=== PATIENT | male | born 1955 | race Caucasian/White ===

== ENCOUNTER 2017-03-31 08:52 | Emergency (ER) | payer OTHER ==
[~2017-03-31] VITALS: Ht 193 cm; Wt 105.0 kg
[~2017-03-31 08:52] MED LIST: ANTIVERT25 MG PO; ATORVASTATI80 MG/TAB PO; CHILD ASA81 MG OR; DIOVAN HCT160 MG/25 PO; DOXYCYCL HYC100 M3 OR; HYDROXYZ HCL25 MG OR; LORTAB 5/3255 MG PO; PRILOSEC20 MG PO; ZOCOR10 MG OR; ZOFRAN ODT8 MG PO
[2017-03-31] MEDS ORDERED: SIMVASTATIN20 MG PO (09:16)
[2017-03-31] MEDS ORDERED: ASPIRIN 81 LOW81 MG PO (09:18)
[2017-03-31 09:30] LABS: HEMATOCRIT 44.1 % (39.0-50.0); IMMATURE GRANULOCYTES 1.4 % (0.0-1.0); MEAN CORPUSCULAR HGB 35.7 pG CALC (26.0-32.0); NEUT# 4.01 thou/uL (1.82-7.42); RED BLOOD COUNT 4.2 mill/uL (4.70-6.10); RED CELL DISTRI WIDTH 13.5 % (11.5-15.5)
[2017-03-31 09:44] LABS: ALBUMIN 4.8 g/dL (3.2-5.0); ALKALINE PHOSPHATASE 99 u/l (38-126); ANION GAP 22 (6-22 (CALC)); BILIRUBIN, TOTAL 0.8 mg/dL (0.0-1.4); BUN 29 mg/dL (9-20); BUN/CREATININE RATIO 25 (12-20 (CALC)); CALCIUM 10.2 mg/dL (8.4-10.2); CARBON DIOXIDE 23 mmol/l (22-30); CHLORIDE 101 mmol/l (95-108); CREATININE 1.2 mg/dL (0.7-1.3); GFR > 60 ML/MIN (>=60 (CALC)); GFR FOR AFR.AMER. > 60 ML/MIN (>=60 (CALC)); GLUCOSE 107 mg/dL (75-110); LIPASE 138 u/l (23-300); POTASSIUM 3.9 mmol/l (3.5-5.1); SGOT/AST 24 u/l (17-59); SGPT/ALT 46 u/l (21-72); SODIUM 141 mmol/l (137-146); TOTAL PROTEIN 8.3 g/dL (6.3-8.2)
[2017-03-31 10:48] LABS: URINE BILIRUBIN - DIPSTICK NEGATIVE (NEGATIVE); URINE BLOOD DIPSTICK SMALL (NEGATIVE); URINE COLOR YELLOW; URINE GLUCOSE - DIPSTICK NEGATIVE (NEGATIVE); URINE KETONE NEGATIVE (NEGATIVE); URINE LEUK ESTERASE NEGATIVE (NEGATIVE); URINE NITRITE - DIPSTICK NEGATIVE (Negative); URINE PH 5.5 (4.5-8.0); URINE PROTEIN - DIPSTICK NEGATIVE (NEG-TRACE); URINE UROBILINOGEN - DIPSTICK 0.2 E.U./dL (0.2)
[2017-03-31 10:59] LABS: URINE CLARITY CLEAR
[2017-03-31 11:10] LABS: URINE RBC 0-2 RBC/hpf (0-5)
[2017-03-31] MEDS ORDERED: ULTRAM50 M1 PO (16:02)
[2017-03-31 16:20] VITALS: BP 126/78
== END 2017-03-31 16:20 | disposition home or self-care (01) | DRG 694 ==
LOC: ED 08:52
PROVIDERS: Emergency Medicine
DX: N20.0 Calculus of kidney (principal); R10.32 Left lower quadrant pain

== ENCOUNTER 2018-03-29 00:51 | Emergency (ER) | payer OTHER ==
[~2018-03-29] VITALS: Ht 193 cm; Wt 96.3 kg
[~2018-03-29 00:51] MED LIST changes: +ASPIRIN 81 LOW81 MG PO; +SIMVASTATIN20 MG PO; +ULTRAM50 M1 PO
[2018-03-29] MEDS ORDERED: NAPROSYN500 MG PO (02:02)
[2018-03-29 02:10] VITALS: BP 112/77
== END 2018-03-29 02:16 | disposition home or self-care (01) | DRG 605 ==
LOC: ED 00:51
PROC: 0HQGXZZ Repair Left Hand Skin, External Approach (ICD-10-PCS; principal; 2018-03-29)
DX: S61.412A Laceration without foreign body of left hand, initial encounter (principal); S63.92XA Sprain of unspecified part of left wrist and hand, initial encounter; I10 Essential (primary) hypertension; E78.00 Pure hypercholesterolemia, unspecified; K21.9 Gastro-esophageal reflux disease without esophagitis; W17.2XXA Fall into hole, initial encounter; Y92.89 Other specified places as the place of occurrence of the external cause; Y99.0 Civilian activity done for income or pay

== ENCOUNTER → 2018-06-17 | Outpatient (REF) | payer OTHER ==
[~2018-06-17] MED LIST changes: +NAPROSYN500 MG PO
[2018-06-17 12:34] LABS: TSH, 3RD GENERATION 6.34 uIU/mL (0.47 - 4.68)
== END | disposition home or self-care (01) | DRG 645 ==
LOC: LAB 11:24
PROVIDERS: ATTEND Nurse Practitioner
DX: R94.6 Abnormal results of thyroid function studies (principal)

== ENCOUNTER 2022-04-18 19:48 | Emergency (ER) | payer MEDICARE ==
[~2022-04-18] VITALS: Ht 193 cm; Wt 79.6 kg
[2022-04-18] VITALS (10 sets, daily range): BP systolic 99–135; BP diastolic 63–90
[2022-04-18 20:22] LABS: BASO% 0.1 % (0-3); EOS% 0.8 % (0-8); LYMPH% 11.3 % (15-41); MEAN CELL VOLUME 109.1 fL CALC (80.0-100.0); MEAN CORPUSCULAR HGB 38.2 pG CALC (26.0-32.0); MONO% 9.2 % (2-13); NEUT# 13.46 thou/uL (1.82-7.42); NEUT% 63.9 % (42-76); RED BLOOD COUNT 3.09 mill/uL (4.70-6.10); RED CELL DISTRI WIDTH 15.4 % (11.5-15.5)
[2022-04-18 20:34] LABS: BILIRUBIN, TOTAL 1.2 mg/dL (0.0-1.4); INTERNATIONAL NORMALIZED RATIO 1.1 RATIO (0.7-1.3); PROTHROMBIN TIME 10.8 SECONDS (9.0-12.5); TOTAL PROTEIN 7.5 g/dL (6.3-8.2)
[2022-04-18 20:35] LABS: CREATININE 2.3 mg/dL (0.7-1.3)
[2022-04-18 20:42] LABS: HEMATOCRIT 33.7 % (39.0-50.0); HEMOGLOBIN 11.8 g/dl (14.0-18.0); IMMATURE GRANULOCYTES 14.7 % (0.0-5.0)
[2022-04-19 00:09] LABS: URINE BILIRUBIN - DIPSTICK NEGATIVE (NEGATIVE); URINE BLOOD DIPSTICK NEGATIVE (NEGATIVE); URINE COLOR YELLOW; URINE GLUCOSE - DIPSTICK NEGATIVE (NEGATIVE); URINE KETONE NEGATIVE (NEGATIVE); URINE LEUK ESTERASE NEGATIVE (NEGATIVE); URINE NITRITE - DIPSTICK NEGATIVE (Negative); URINE PH 5.5 (4.5-8.0); URINE PROTEIN - DIPSTICK NEGATIVE (NEG-TRACE); URINE UROBILINOGEN - DIPSTICK 0.2 E.U./dL (0.2)
[2022-04-19 03:07] VITALS: BP 135/90
== END 2022-04-19 03:08 | disposition short-term general hospital (02) ==
LOC: ED 19:48
PROVIDERS: Emergency Medicine
DX: M84.650A Pathological fracture in other disease, pelvis, initial encounter for fracture (principal); M89.9 Disorder of bone, unspecified; N17.9 Acute kidney failure, unspecified; E86.0 Dehydration; R19.00 Intra-abdominal and pelvic swelling, mass and lump, unspecified site; E87.20 Acidosis, unspecified; R19.5 Other fecal abnormalities; R79.89 Other specified abnormal findings of blood chemistry; D72.829 Elevated white blood cell count, unspecified; I10 Essential (primary) hypertension; E78.00 Pure hypercholesterolemia, unspecified; K21.9 Gastro-esophageal reflux disease without esophagitis; Z95.828 Presence of other vascular implants and grafts
CPT/HCPCS: J1956; S0164

== ENCOUNTER 2022-05-28 09:16 | Emergency (ER) | payer MEDICARE ==
[~2022-05-28] VITALS: Ht 188 cm; Wt 78.9 kg
[2022-05-28] VITALS (36 sets, daily range): BP systolic 86–160; BP diastolic 60–103
[2022-05-28 11:24] LABS: URINE BILIRUBIN - DIPSTICK NEGATIVE (NEGATIVE); URINE BLOOD DIPSTICK SMALL (NEGATIVE); URINE COLOR YELLOW; URINE GLUCOSE - DIPSTICK NEGATIVE (NEGATIVE); URINE KETONE TRACE mg/dL (NEGATIVE); URINE PH 5.5 (4.5-8.0); URINE PROTEIN - DIPSTICK TRACE mg/dL (NEG-TRACE); URINE SPECIFIC GRAVITY >=1.030; URINE UROBILINOGEN - DIPSTICK 0.2 E.U./dL (0.2)
[2022-05-28 11:27] LABS: ALBUMIN 3.2 g/dL (3.2-5.0); ALKALINE PHOSPHATASE 322 u/l (38-126); ANION GAP 8 (6-22 (CALC)); BILIRUBIN, TOTAL 0.9 mg/dL (0.2-1.3); CARBON DIOXIDE 27 mmol/l (22-30); CHLORIDE 96 mmol/l (95-108); LIPASE 116 u/l (23-300); MAGNESIUM 2.1 mg/dL (1.6-2.3); POTASSIUM 4.1 mmol/l (3.5-5.1); SGOT/AST 44 u/l (19-48); SODIUM 128 mmol/l (137-146); TOTAL PROTEIN 6.3 g/dL (6.3-8.2)
[2022-05-28 11:29] LABS: BUN 19 mg/dL (8-23); BUN/CREATININE RATIO 19 (12-20 (CALC)); GFR FOR AFR.AMER. > 60 ML/MIN (>=60 (CALC)); GFR OTHER RACES > 60 ML/MIN (>=60 (CALC)); URINE LEUK ESTERASE SMALL (NEGATIVE); URINE NITRITE - DIPSTICK POSITIVE (Negative)
[2022-05-28 11:30] LABS: URINE BACTERIA FEW hpf; URINE EPITHELIAL CELLS RARE EPI/hpf (0-FEW); URINE RBC 0-2 RBC/hpf (0-5)
[2022-05-28 11:35] LABS: INTERNATIONAL NORMALIZED RATIO 1.4 RATIO (0.7-1.3); PROTHROMBIN TIME 13.9 SECONDS (9.0-12.5)
[2022-05-28 11:56] LABS: BASO% 0.2 % (0-3); EOS% 1.7 % (0-8); LYMPH% 14.7 % (15-41); MEAN CELL VOLUME 105.1 fL CALC (80.0-100.0); MEAN CORPUSCULAR HGB 33.8 pG CALC (26.0-32.0); MEAN CORPUSCULAR HGB CONC 32.2 g/dL CAL (32.0-36.0); MONO% 12.4 % (2-13); NEUT# 6.53 thou/uL (1.82-7.42); NEUT% 50.4 % (42-76); RED BLOOD COUNT 1.95 mill/uL (4.70-6.10); RED CELL DISTRI WIDTH 22.8 % (11.5-15.5)
[2022-05-28 11:58] LABS: HEMATOCRIT 20.5 % (39.0-50.0)
[2022-05-28 11:59] LABS: HEMOGLOBIN 6.6 g/dl (14.0-18.0); IMMATURE GRANULOCYTES 20.6 % (0.0-5.0)
== END 2022-05-28 16:45 | disposition short-term general hospital (02) ==
LOC: ED 09:16
PROVIDERS: Internal Medicine
PROC: 30233N1 Transfusion of Nonautologous Red Blood Cells into Peripheral Vein, Percutaneous Approach (ICD-10-PCS; principal; 2022-05-28)
DX: K92.2 Gastrointestinal hemorrhage, unspecified (principal); D64.9 Anemia, unspecified; C34.90 Malignant neoplasm of unspecified part of unspecified bronchus or lung; R41.82 Altered mental status, unspecified; D69.6 Thrombocytopenia, unspecified; E87.1 Hypo-osmolality and hyponatremia; E87.20 Acidosis, unspecified; R74.8 Abnormal levels of other serum enzymes; I10 Essential (primary) hypertension; E78.00 Pure hypercholesterolemia, unspecified; K21.9 Gastro-esophageal reflux disease without esophagitis
CPT/HCPCS: P9016; Q9967; S0164

== ENCOUNTER 2022-06-03 22:28 | Inpatient (IN) | payer MEDICARE ==
[~2022-06-03] VITALS: Ht 188 cm; Wt 80.1 kg
--- NOTE | 2022-06-03 22:28 | NUR ---
PT ARRIVED VIA EMS TO ROOM 10 FOR TRIAGE. PER FAMILY, PT IS FEELING WEAK AND HAD BEEN RECENTLY DIAGNOSED WITH STAGE IV CANCER.
[2022-06-03 22:45] VITALS: BP 83/54
[2022-06-03 23:01] VITALS: BP 93/51
[2022-06-03 23:15] VITALS: BP 72/42
[2022-06-03 23:17] LABS: BASO% 0.5 % (0-3); EOS% 2.5 % (0-8); HEMATOCRIT 20.3 % (39.0-50.0); LYMPH% 19.7 % (15-41); MEAN CELL VOLUME 101.5 fL CALC (80.0-100.0); MEAN CORPUSCULAR HGB CONC 31.5 g/dL CAL (32.0-36.0); MONO% 12.8 % (2-13); NEUT# 4.43 thou/uL (1.82-7.42); NEUT% 56.4 % (42-76); RED CELL DISTRI WIDTH 24.4 % (11.5-15.5)
[2022-06-03 23:20] LABS: ALBUMIN 2.6 g/dL (3.2-5.0); ALKALINE PHOSPHATASE 264 u/l (38-126); ANION GAP 6 (6-22 (CALC)); BILIRUBIN, TOTAL 0.7 mg/dL (0.2-1.3); BUN 21 mg/dL (8-23); BUN/CREATININE RATIO 24 (12-20 (CALC)); CARBON DIOXIDE 28 mmol/l (22-30); CHLORIDE 97 mmol/l (95-108); CREATININE 0.9 mg/dL (0.7-1.3); GFR FOR AFR.AMER. > 60 ML/MIN (>=60 (CALC)); GFR OTHER RACES > 60 ML/MIN (>=60 (CALC)); POTASSIUM 4.5 mmol/l (3.5-5.1); SGOT/AST 47 u/l (19-48); SODIUM 126 mmol/l (137-146); TOTAL PROTEIN 5.5 g/dL (6.3-8.2)
[2022-06-03 23:23] LABS: IMMATURE GRANULOCYTES 8.1 % (0.0-5.0)
[2022-06-03 23:24] LABS: HEMOGLOBIN 6.4 g/dl (14.0-18.0)
[2022-06-03 23:30] LABS: ACT PARTIAL THROMBO TIME 29.5 SECONDS (20.0-32.5); INTERNATIONAL NORMALIZED RATIO 1.4 RATIO (0.7-1.3); PROTHROMBIN TIME 13.9 SECONDS (9.0-12.5)
--- NOTE | 2022-06-03 23:30 | NUR ---
Reassessment of patient completed. No distress noted. FAMILY MEMBERS AT BEDSIDE WITH PT.
[2022-06-03 23:31] VITALS: BP 78/50
[2022-06-03 23:59] VITALS: BP 108/69
[2022-06-04] VITALS (20 sets, daily range): BP systolic 88–136; BP diastolic 55–85
--- NOTE | 2022-06-04 00:45 | NUR ---
PT IN IN ROOM RESTING WITH EYES CLOSED. PT WAS DESATING AT 84. 2L OF O2 VIA NASAL CANULA APPLIED. SECOND ANTIBIOTICS IS RUNNING.
[2022-06-04 00:51] LABS: URINE BILIRUBIN - DIPSTICK NEGATIVE (NEGATIVE); URINE BLOOD DIPSTICK SMALL (NEGATIVE); URINE COLOR YELLOW; URINE GLUCOSE - DIPSTICK NEGATIVE (NEGATIVE); URINE KETONE NEGATIVE (NEGATIVE); URINE LEUK ESTERASE TRACE (NEGATIVE); URINE PH 5.5 (4.5-8.0); URINE PROTEIN - DIPSTICK TRACE mg/dL (NEG-TRACE); URINE SPECIFIC GRAVITY 1.025; URINE UROBILINOGEN - DIPSTICK 0.2 E.U./dL (0.2)
[2022-06-04 00:52] LABS: URINE NITRITE - DIPSTICK NEGATIVE (Negative)
[2022-06-04] MEDS ORDERED: ATORVASTATIN CA80 MG PO (00:58)
[2022-06-04] MEDS ORDERED: BACTRIM DS1 TAB PO (00:59)
[2022-06-04] MEDS ORDERED: LORTAB 5/3255 MG PO (01:01)
[2022-06-04] MEDS ORDERED: DOCUSATE SOD100 MG PO (01:02)
[2022-06-04] MEDS ORDERED: IPRATROPIU0.5 MG/3 M IN (01:02)
[2022-06-04] MEDS ORDERED: LISINOPRIL5 MG PO (01:03)
[2022-06-04] MEDS ORDERED: METOPROL TAR25 MG PO (01:03)
[2022-06-04] MEDS ORDERED: PROTONIX40 M2 PO (01:04)
[2022-06-04] MEDS ORDERED: MIRTAZAPINE15 MG PO (01:04)
[2022-06-04] MEDS ORDERED: TAMSULOSIN HCL0.4 MG PO (01:06)
[2022-06-04] MEDS ORDERED: PEG 3350 XX (01:06)
[2022-06-04 01:09] LABS: URINE SQUAMOUS EPITHELIAL CELL FEW EPI/hpf (0-FEW)
--- NOTE | 2022-06-04 01:48 | NUR ---
PT ADMITTED TO [facility] 267. PT TRANSPORTED TO FLOOR VIA STRETCHER. BEDSIDE REPORT GIVEN TO MARTIR. VANCO IS RUNNING, AND THE REMAINDER OF FLUIDS.
--- NOTE | 2022-06-04 01:55 | NUR ---
PT ARRIVED TO [facility], VIA STRETCHER ACCOMPANIED BY LESLEY MANTILLA. RECEIVED BEDSIDE REPORT FROM ER NURSE. FAMILY MEMBER AT BEDSIDE. PT A&OX3. VS AND ASSESSMENT COMPLETED. O2 @ 3L VIA NASAL CANNULE IN PLACE. IV SITES HEALTHY AND PATENT. BED ALARM ACTIVE AND SAFETY PRECAUTIONS IN PLACE. CALL LIGHT IN REACH.
--- NOTE | 2022-06-04 02:59 | NUR ---
PT RESTING ON BED. FAMILY AT BEDSIDE. TRANSFUSION INITIATED @0239 @ 125 MLS/HR. PT EDUCATED ON TRANSFUSION REACTIONS. PT SHOWED UNDERSTANDING.
--- NOTE | 2022-06-04 04:00 | NUR ---
PT RESTING ON BED WITH EYES CLOSED. TRANSFUSION INCREASED TO 150 MLS/HR. PT TOLERATING WELL. NO SIGNS OF REACTION NOTED. BED ALARM ACTIVE AND SAFETY PRECAUTIONS IN PLACE. CALL LIGHT IN REACH.
--- NOTE | 2022-06-04 06:32 | NUR ---
PT RESTING ON BED WITH EYES CLOSED. NO DISTRESS OR PAIN NOTED. TRANFUSION OF RBC COMPLETED AND VS OBTAINED. NO SIGNS OF REACTION NOTED. BED ALARM ACTIVE AND SAFETY PRECAUTIONS IN PLACE. CALL LIGHT IN REACH.
--- NOTE | 2022-06-04 08:00 | NUR ---
RCD REPORT FROM NIGHTSHIFT, PT IS LETHARGIC, ONLY ORIENTED TO PERSON AND PLACE. PT HAS BEEN ON BEDREST. PT HAS ONE MORE PRBC UNIT LEFT.
[2022-06-04 08:50] LABS: HEMATOCRIT 25.3 % (39.0-50.0); HEMOGLOBIN 8.1 g/dl (14.0-18.0)
--- NOTE | 2022-06-04 12:00 | NUR ---
FAMILY IS AT BEDSIDE AND WANTS PT TRANSFERRED TO [facility].
--- NOTE | 2022-06-04 13:25 | NUR ---
S: JEWEL ARTEAGA is a 67 M who presents with anemia, hyponatremia, sepsis due to pneumonia. He has a history of HTN, high cholesterol, GERD, lung cancer. All medications in patient's chart were reviewed. O: VS: BP 114/71 mmHg, P 76 bpm, RR 16 bpm,T 97.7 F W 79 kg, HT 74 inch, Scr= 0.9 mg/dl,CrCl= 81.2 ml/min A: Blood culture is pending. P: Patient is on cefepime 2 g iv q8h. Vancomycin ordered for pharmacy to dose. Start Vancomycin 1 g IV Q12H. Vancomycin trough is drawn before the 4th dose on 06/05/22-1030. Vancomycin goal trough is between 15-20 mcg/ml. Pharmacy will follow and or advise on antibiotics use as needed.
--- NOTE | 2022-06-04 19:30 | NUR ---
PATIENT RESTING IN BED WITH HOB ELEVATED. ALERT, YET DROWSY. ASSESSMENT COMPLETE. OXYGEN REMAINS IN PLACE VIA NC. NO COMPLAINTS OF PAIN VOICED. PATIENT OBSERVED WITH SHALLOW BREATHING AND INTERMITTENT COUGHING. ABLE TO RECOVER AFTER. PRODUCTIVE COUGH. SOB ON EXERTION. DENIES NEEDING ANYTHING AT THIS TIME. BED REMAINS IN LOW POSITION. CALL FRENCH IN REACH.
--- NOTE | 2022-06-04 19:56 | NUR ---
INFORMED LICENSED SALES ASSISTANT PROVIDER OF PATIENTS LOW BPS AND CLARIFIED IVF ORDER. PROVIDER SAID TO HOLD 2100 LOPRESSOR AND TO HANG FLUIDS ORDERED.
--- NOTE | 2022-06-05 00:24 | NUR ---
NOTIFIED OFFICE 365 CONSULTANT MD OF PATIENT APPEARING WITH CHILLS AND TEMP OF 100.4. NEW ORDER RECEIVED. SEE EMAR.
[2022-06-05 00:30] VITALS: BP 156/95
--- NOTE | 2022-06-05 04:00 | NUR ---
PATIENT KEEPS TAKING OFF OXYGEN. WHEN OXYGEN GETS REAPPLIED. PATIENT TAKES OFF AGAIN. PATIENT ALSO KEEPS KICKING OFF HIS COVERS. APPEAR ALERT AND ABLE TO VOICE NEEDS. BED REMAINS IN LOW POSITION. BED ALARM ACTIVE FOR SAFETY REASONS.
[2022-06-05 04:55] VITALS: BP 124/80
[2022-06-05 05:36] LABS: HEMATOCRIT 24.6 % (39.0-50.0); HEMOGLOBIN 8.1 g/dl (14.0-18.0); MEAN CORPUSCULAR HGB 31.4 pG CALC (26.0-32.0); MEAN CORPUSCULAR HGB CONC 32.9 g/dL CAL (32.0-36.0); RED BLOOD COUNT 2.58 mill/uL (4.70-6.10)
[2022-06-05 05:38] LABS: ALBUMIN 2.5 g/dL (3.2-5.0); ALKALINE PHOSPHATASE 309 u/l (38-126); ANION GAP 4 (6-22 (CALC)); BILIRUBIN, TOTAL 0.9 mg/dL (0.2-1.3); BUN 19 mg/dL (8-23); BUN/CREATININE RATIO 20 (12-20 (CALC)); CARBON DIOXIDE 28 mmol/l (22-30); CHLORIDE 101 mmol/l (95-108); CREATININE 0.9 mg/dL (0.7-1.3); GFR FOR AFR.AMER. > 60 ML/MIN (>=60 (CALC)); GFR OTHER RACES > 60 ML/MIN (>=60 (CALC)); MAGNESIUM 1.7 mg/dL (1.6-2.3); SGOT/AST 48 u/l (19-48); SODIUM 129 mmol/l (137-146); TOTAL PROTEIN 5.4 g/dL (6.3-8.2)
[2022-06-05 06:24] VITALS: BP 130/79
[2022-06-05 06:25] LABS: MEAN CELL VOLUME 95.3 fL CALC (80.0-100.0)
[2022-06-05 06:26] LABS: BAND 2 % (0-8); MANUAL DIFFERENTIAL YES; NUCLEATED RED BLOOD CELL 3 /100WBC (0-1)
[2022-06-05 06:27] LABS: PLATELET COUNT 89 thou/uL (130-400)
--- NOTE | 2022-06-05 07:44 | NUR ---
PT RESTING IN SEMI FOWLERS POSITION. PT A/OX3 ASSESSMENT AND VS COMPLETED. HEART RHYTHM ON TELE RESPIRATIONS ON 2LNC . IV SITE NOTED NS INFUSING. PT DENIES ADDITIONAL NEEDS AT THE TIME PT URINARY ELKINS CATH. NOTED URINE OUT PUT 400 TO BE DOCUMENTED. ALL SAFETY PRECAUTIONS IN PLACE WITH CALL LIGHT IN REACH.
[2022-06-05 10:00] VITALS: BP 130/85
--- NOTE | 2022-06-05 12:00 | NUR ---
PT RESTING IN SEMI FOWLERS POSITION DENIES ADDITIONAL NEEDS AT THE TIME ALL SAFETY PRECAUTIONS IN PLACE.
[2022-06-05 14:05] VITALS: BP 111/68
--- NOTE | 2022-06-05 16:32 | NUR ---
VANCO TROUGH IS 13 CONTNUE VANCO 1 GRAM Q12H NEXT TROUGH WILL BE 06/07/22 @1030
[2022-06-05 19:00] VITALS: BP 159/97
--- NOTE | 2022-06-05 19:15 | NUR ---
PATIENT RESTING IN BED WITH HOB ELEVATED. OXYGEN REMAINS ON VIA NC. PATIENT DOES PERIODICALLY REMOVE OXYGEN. FREQUENT REDIRECTING. AND DAUGHTER AT BEDSIDE. ASSESSMENT DONE. SHALLOW BREATHING OBSERVED. SOB AFTER COUGHING BUT QUICKLY RECOVERS. DENIES NEEDING ANYTHING. BED REMAINS IN LOW POSITION. CALL FRENCH IN REACH. BED ALARM ACTIVE.
[2022-06-06] VITALS (7 sets, daily range): BP systolic 111–163; BP diastolic 68–99
--- NOTE | 2022-06-06 00:55 | NUR ---
PATIENT RESTING IN BED WITH EYES CLOSED. SHALLOW BREATHING REMAINS. NO COMPLAINTS OF PAIN VOICED. BED RMEAINS IN LOW POSITION. CALL LIGHT IN REACH. BED ALARM ACTIVE.
--- NOTE | 2022-06-06 04:14 | NUR ---
NEW BAG OF IV FLUIDS HUNG. PATIENT REMAINS ALERT. ABLE TO MAKE NEEDS KNOWN. PATIENT DOES TRY MOVING LEGS OFF BED TO GET OUT OF IT. PATIENT REDIRECTED ON SAFETY CONCERNS. PATIENT OBSERVED TAKING OXYGEN FREQUENTLY. RE-EDUCTAED PATIENT ON THE IMPORTANCE OF WEARING OXYGEN. BED REMAINS IN LOW POSITION. CALL FRENCH IN REACH. BED ALARM ACTIVE FOR SAFETY.
[2022-06-06 07:59] LABS: BASO% 0.5 % (0-3); EOS% 3.9 % (0-8); HEMATOCRIT 27.1 % (39.0-50.0); HEMOGLOBIN 8.7 g/dl (14.0-18.0); LYMPH% 26.2 % (15-41); MEAN CELL VOLUME 97.1 fL CALC (80.0-100.0); MEAN CORPUSCULAR HGB 31.2 pG CALC (26.0-32.0); MEAN CORPUSCULAR HGB CONC 32.1 g/dL CAL (32.0-36.0); MONO% 14.9 % (2-13); NEUT# 2.57 thou/uL (1.82-7.42); NEUT% 43.4 % (42-76); RED BLOOD COUNT 2.79 mill/uL (4.70-6.10); RED CELL DISTRI WIDTH 23.6 % (11.5-15.5)
--- NOTE | 2022-06-06 08:00 | NUR ---
GOT REPORT FROM CAMPUS RECRUITING INTERNSHIP NURSE. PATIENT IN BED HOLDING IV IN HAND NO LONGER IN PLACE. NO BLEEDING AT SITE. CLEANED AREA AND APPLED GUAZE AND TAPE TO KEEP IT CLEAN. NEW IV STARTED IN LAC. PATIENT TOLERATED WELL. ELKINS EMPTIED. FALL PRECAUTIONS IN PLACE. CALL LIGHT AND BEDSIDE TABLE WITH IN REACH. ADVISED TO CALL IF NEEDING ANYTHING. PATIENT VERBALZIED UNDERSTANDING.
[2022-06-06 08:17] LABS: ALBUMIN 2.8 g/dL (3.2-5.0); ALKALINE PHOSPHATASE 376 u/l (38-126); ANION GAP 7 (6-22 (CALC)); BUN 16 mg/dL (8-23); BUN/CREATININE RATIO 19 (12-20 (CALC)); CARBON DIOXIDE 24 mmol/l (22-30); CHLORIDE 105 mmol/l (95-108); CREATININE 0.9 mg/dL (0.7-1.3); GFR FOR AFR.AMER. > 60 ML/MIN (>=60 (CALC)); GFR OTHER RACES > 60 ML/MIN (>=60 (CALC)); POTASSIUM 4.1 mmol/l (3.5-5.1); SGOT/AST 60 u/l (19-48); SODIUM 132 mmol/l (137-146); TOTAL PROTEIN 5.9 g/dL (6.3-8.2)
[2022-06-06 08:26] LABS: IMMATURE GRANULOCYTES 11.1 % (0.0-5.0)
[2022-06-06 08:31] LABS: BILIRUBIN, TOTAL 1.3 mg/dL (0.2-1.3)
--- NOTE | 2022-06-06 12:00 | NUR ---
PATIENT IS SLEEPING WITH DAUGHTER AT BEDSIDE. PATIENT HAS NO SXS OF DISCOMFORT OR DISTRESS. CALL LIGHT NEXT TO PATIENT AND BED ALARM IS STILL ON. ADVISED DAUGHTER TO CALL IF HE NEEDS ANYTHING. SHE VERBALIZED UNDERSTANDING.
--- NOTE | 2022-06-06 16:00 | NUR ---
PATIENT IS AWAKE WITH DAUGHTER AT BEDSIDE. PATIENT HAS NO SXS OF DISCOMFORT OR DISTRESS. CALL LIGHT NEXT TO PATIENT AND BED ALARM IS STILL ON. ADVISED DAUGHTER AND PATIENT TO CALL IF HE NEEDS ANYTHING. BOTH VERBALIZED UNDERSTANDING.
--- NOTE | 2022-06-06 20:00 | NUR ---
PT RESTING IN BED, NO SIGNS OF DISTRESS NOTED, RESP EVEN AND UNLABORED. PT HAS A NON PRODUCTIVE COARSE COUGH. ENCOURAGED PT COUGH DEEP AND PROVIDE SPUTUM SAMPLE, PT UNABLE TO EXPELL SPUTUM. AT BEDSIDE, DISCUSSED POC, PT HAS A ELKINS DRAINING TO GRAVITY, +3 PITTING EDEMA TO BUE, ELEVATED ON PILLOWS. FLUIDS INFUSING AT 125, MD NOTIFIED AND ORDERS RECEIVED TO GIVE IV LASIX AND DECREASE FLUIDS. IV FLUIDS DECREASED, DISCUSSED LASIX WITH PT AND , VERBALIZED UNDERSTANDING. NO EDEMA TO BLE. PT IS ON O2 3L HUMIDIFIED. INCENTIVE SPIROMETER BROUGHT TO BEDSIDE AND PROVIDED TEACHING, PT DEMONSTRATED IT'S USE, VOLUME 250ML. ENCOURAGED PT TO USE, VERBALIZED UNDERSTANDING. PT MEDICATED PER JUN, ASSESSMENT COMPLETED, CALL LIGHT IN REACH,CONTINUE TO MONITOR.
[2022-06-07] VITALS (8 sets, daily range): BP systolic 111–156; BP diastolic 71–87
--- NOTE | 2022-06-07 | NUR ---
PT RESTING IN BED WITH EYES CLOSED, NO SIGNS OF DISTRESS NOTED, RESP EVEN AND UNLABORED. CBI DRAINING TO GRAVITY, URINE CLEAR IN ELKINS BAG. BAG #18 CONTINUES. CALL LIGHT IN REACH,CONTINUE TO MONITOR.
--- NOTE | 2022-06-07 | NUR ---
PT RESTING IN BED WITH EYES CLOSED, NO SIGNS OF DISTRESS NOTED, RESP EVEN AND UNLABORED. 02 3L NC, CALL LIGHT IN REACH, BED ALARM FOR SAFETY, CONTINUE TO MONITOR.
--- NOTE | 2022-06-07 04:00 | NUR ---
PT RESTING IN BED, NOTED EDEMA TO BUE HAS SLIGHTLY DECREASED. BUE ELEVATED ON PILLOWS. PT DENIES ANY NEEDS OR COMPLAINTS, CALL LIGHT IN REACH,CONTINUE TO MONITOR. BED ALARM FOR SAFETY.
[2022-06-07 05:50] LABS: HEMATOCRIT 22.6 % (39.0-50.0); HEMOGLOBIN 7.2 g/dl (14.0-18.0); MEAN CORPUSCULAR HGB 30.9 pG CALC (26.0-32.0); MEAN CORPUSCULAR HGB CONC 31.9 g/dL CAL (32.0-36.0); RED BLOOD COUNT 2.33 mill/uL (4.70-6.10); RED CELL DISTRI WIDTH 23.5 % (11.5-15.5)
[2022-06-07 06:21] LABS: ANION GAP 6 (6-22 (CALC)); BUN 16 mg/dL (8-23); BUN/CREATININE RATIO 19 (12-20 (CALC)); CARBON DIOXIDE 24 mmol/l (22-30); CHLORIDE 105 mmol/l (95-108); CREATININE 0.8 mg/dL (0.7-1.3); GFR FOR AFR.AMER. > 60 ML/MIN (>=60 (CALC)); GFR OTHER RACES > 60 ML/MIN (>=60 (CALC)); POTASSIUM 3.6 mmol/l (3.5-5.1); SODIUM 131 mmol/l (137-146)
--- NOTE | 2022-06-07 06:30 | NUR ---
PT MEDICATED FOR PAIN, NO SIGNS OF DISTRESS NOTED, RESP EVEN AND UNLABORED. CALL LIGHT IN REACH,CONTINUE TO MONITOR.
[2022-06-07 06:38] LABS: IMMATURE GRANULOCYTES 11.7 % (0.0-5.0)
[2022-06-07 06:39] LABS: BAND 1 % (0-8); MANUAL DIFFERENTIAL YES; NUCLEATED RED BLOOD CELL 4 /100WBC (0-1); PLATELET COUNT 97 thou/uL (130-400)
--- NOTE | 2022-06-07 08:00 | NUR ---
PT LAYING IN BED WIH HOB UP, PT IS AWAKE AND ALERT TO SELF. PT HAS NO C/O PAIN AT THIS TIME. IV SITE TO LAC PATENT AND CLEAN. O2 @ 2LITERS NC ON.ELKINS IS PATENT AND DRAINING BLOOD TINGED URINE , PROVIDER IS AWARE. URINE SPECIMEN ORDERED AND COLLECTED. SPUTUM COLLECTED WELL. CALL LIGHT WITHIN REACH AND SAFETY MEASURES IN PLACE.
--- NOTE | 2022-06-07 12:00 | NUR ---
PT IN BED WITH HEAD UP AND AT BEDSIDE. NO CHANGE IN PT MENTAL STATUS. PT HAS NO C/O PAIN AT THIS TIME. IV SITE TO LAC INTACT WITH 20 ML NS/HR. ELKINS PATENT, CONTINUES TO DRAIN YELLOW BLOOD TINGED URINE. TELE ON AND LEADS ATTACHED. CALL LIGHT WITHIN REACH AND SAFETY PRECAUTIONS IN PLACE.
--- NOTE | 2022-06-07 14:14 | NUR ---
Vancomycin trough is 22 Change dose to vancomycin 750mg IV q12h Next trough drawn 06/09/22 @ 0030
--- NOTE | 2022-06-07 16:00 | NUR ---
PT IN BED RESTING WITH FAMILY AT BEDSIDE. PT HAS NO C/O PAIN AT THIS TIME. PT HAS IV TO LAC, INTACT AND FLUSHING WELL WITH NS @ 20 ML/HR. TELE ON, LEADS ATTACHED. ELKINS IS PATENT AND DRAINING CLEAR, YELLOW URINE AT THIS TIME. PT HAS CALL LIGHT WITHIN REACH, SAFETY MEASURES IN PLACE.
--- NOTE | 2022-06-07 16:39 | NUR ---
PT RECIEVING 1 UNIT OF BLOOD, SPIKED BY RN NURSING SUPERVISER. AFTER 15 MINUTES PT SHOWS NO SYMPTOMS OF REACTION AND VS ARE STABLE.
--- NOTE | 2022-06-07 18:10 | NUR ---
PT C/O PAIN AT 8 ON PAIN SCALE IN LOWER BACK. PT MEDICATED ORDERED.
--- NOTE | 2022-06-07 19:48 | NUR ---
PT RESITNG IN BED, NO SIGNS OF DISTRESS NOTED, RESP EVEN AND UNLABORED. AT BEDSIDE,DISCUSSED POC, VERBALIZED UNDERSTANDING. PT STILL HAS EDEMA TO BUE, AND HIPS, PT REPOSITIONED WITH PILLOWS. 02 2L NC HUMIDIFIED. TEDS APPLIED. ELKINS DRAINING TO GRAVITY, LEG STRAP IN PLACE, DRAINING TO GRAVITY, ASSESSMENT COMPLETED, BED ALARM FOR SAFETY, CALL LIGHT IN REACH,CONTINUE TO MONITOR.
--- NOTE | 2022-06-08 | NUR ---
PT RESTING IN BED WITH EYES CLOSED, NO SIGNS OF DISTRESS NOTED, RESP EVEN AND UNLABORED. 02 2L NC, BED ALARM FOR SAFETY, CALL LIGHT IN REACH,CONTINUE TO MONITOR.
--- NOTE | 2022-06-08 03:53 | NUR ---
PT RESTING IN BED, ASKING INPATIENT CODER,"WHAT TIME IS IT?" INFORMED PT OF THE TIME, PT STATES,"OK, I NEED TO GET UP AND GET READY FOR WORK." INFORMED PT THAT HE IS IN THE HOSPITAL, PT LOOKED AROUND THE ROOM AND STATES,"OH YEAH, I BETTER GET BACK TO SLEEP THEN." PT REPOSITIONED WITH PILLOWS, AND BLANKET PROVIDED. CALL LIGHT IN REACH, BED ALARM IN PLACE. CALL LIGHT IN REACH,CONTINUE TO MONITOR.
[2022-06-08 04:16] VITALS: BP 152/128
[2022-06-08 05:18] LABS: MEAN CELL VOLUME 94.6 fL CALC (80.0-100.0); MEAN CORPUSCULAR HGB 31.1 pG CALC (26.0-32.0); MEAN CORPUSCULAR HGB CONC 32.9 g/dL CAL (32.0-36.0); PLATELET COUNT 100 thou/uL (130-400); RED BLOOD COUNT 2.96 mill/uL (4.70-6.10); RED CELL DISTRI WIDTH 21.6 % (11.5-15.5)
[2022-06-08 05:33] LABS: ANION GAP 7 (6-22 (CALC)); BUN 15 mg/dL (8-23); BUN/CREATININE RATIO 19 (12-20 (CALC)); CARBON DIOXIDE 25 mmol/l (22-30); CHLORIDE 105 mmol/l (95-108); CREATININE 0.8 mg/dL (0.7-1.3); GFR FOR AFR.AMER. > 60 ML/MIN (>=60 (CALC)); GFR OTHER RACES > 60 ML/MIN (>=60 (CALC)); POTASSIUM 3.4 mmol/l (3.5-5.1); SODIUM 133 mmol/l (137-146)
[2022-06-08 05:35] VITALS: BP 158/110
[2022-06-08 05:53] LABS: HEMOGLOBIN 9.2 g/dl (14.0-18.0); IMMATURE GRANULOCYTES 11.9 % (0.0-5.0)
[2022-06-08 05:54] LABS: MANUAL DIFFERENTIAL YES
[2022-06-08 05:55] LABS: BAND 3 % (0-8); NUCLEATED RED BLOOD CELL 4 /100WBC (0-1)
[2022-06-08 06:42] VITALS: BP 160/94
--- NOTE | 2022-06-08 09:27 | NUR ---
PT SEEN IN ROOM WITH AT BEDSIDE, APPEARS WEAK BUT ORIENTED. MEDS GIVEN BY MOUTH ONE AT A TIME, SWALLOWS WELL.
[2022-06-08 10:00] VITALS: BP 156/89
--- NOTE | 2022-06-08 11:21 | NUR ---
PT ASSISTED OOB TO CHAIR BY PHYSICAL TUBING DRIER LA. PT APPEARS COMFORTABLE THERE. REMAINS AT BEDSIDE.
--- NOTE | 2022-06-08 13:32 | NUR ---
PT AT REST IN THE BED, AT BEDSIDE, NO DISTRESS. EYES CLOSED.
[2022-06-08 14:00] VITALS: BP 128/82
--- NOTE | 2022-06-08 16:58 | NUR ---
PT UNCHANGED ASSESSMENT FROM PRIOR, REMAINS AT REST IN THE BED. PT APPEARS WEAK BEFORE, REMAINS AT BEDSIDE.
[2022-06-08 18:42] VITALS: BP 154/84
--- NOTE | 2022-06-08 20:00 | NUR ---
RECEIVED REPORT FROM DAYSHIFT NURSE. PT NOTED LAYING IN BED FOWLERS. NASAL CANNULA IN PLACE, PT IS ALERT TO SELF AND PLACE BUT SHOWS SIGNS OF CONFUSION AND DISORIENTATION. AT BEDSIDE WITH PT. IV SITE APPEARS HEALTHY WITH FLUIDS RUNNING PER EMAR. EDEMA NOTED IN THE RT ARM. CALL LIGHT WIHTIN REACH AND SAFETY PRECAUTIONS IN PLACE.
[2022-06-09] VITALS (7 sets, daily range): BP systolic 103–145; BP diastolic 60–92
--- NOTE | 2022-06-09 01:34 | NUR ---
APOLLOO TROUGH 21H CALLED [facility] AND SPOKE WITH IGNACIA CRYSTAL INSTRUCTED TO HOLD VANCO DOSE PER EMAR FOR ONE HOUR
--- NOTE | 2022-06-09 04:00 | NUR ---
PT LAYING SUPINE IN BED. PT TOOK OFF NASAL CANNULA AND TELE MONITOR. EDUCATED PT ON IMPORTANCE OF KEEPING ON AND REPLACED NASAL CANNULA AND TELE LEADS. PT DENIES ANY PAIN. CALL LIGHT WITHIN REACH SAFETY PRECAUTIONS IN PLACE.
[2022-06-09 05:35] LABS: HEMATOCRIT 28.6 % (39.0-50.0); HEMOGLOBIN 9.1 g/dl (14.0-18.0); MEAN CORPUSCULAR HGB 30.5 pG CALC (26.0-32.0); MEAN CORPUSCULAR HGB CONC 31.8 g/dL CAL (32.0-36.0); PLATELET COUNT 102 thou/uL (130-400); RED BLOOD COUNT 2.98 mill/uL (4.70-6.10); RED CELL DISTRI WIDTH 22.5 % (11.5-15.5)
[2022-06-09 05:45] LABS: ALBUMIN 2.7 g/dL (3.2-5.0); ALKALINE PHOSPHATASE 358 u/l (38-126); ANION GAP 4 (6-22 (CALC)); BILIRUBIN, TOTAL 1.1 mg/dL (0.2-1.3); BUN 16 mg/dL (8-23); BUN/CREATININE RATIO 21 (12-20 (CALC)); CARBON DIOXIDE 25 mmol/l (22-30); CHLORIDE 107 mmol/l (95-108); CREATININE 0.8 mg/dL (0.7-1.3); GFR FOR AFR.AMER. > 60 ML/MIN (>=60 (CALC)); GFR OTHER RACES > 60 ML/MIN (>=60 (CALC)); MAGNESIUM 2.1 mg/dL (1.6-2.3); POTASSIUM 3.8 mmol/l (3.5-5.1); SGOT/AST 47 u/l (19-48); SODIUM 132 mmol/l (137-146)
[2022-06-09 06:23] LABS: BAND 3 % (0-8); MANUAL DIFFERENTIAL YES; NUCLEATED RED BLOOD CELL 5 /100WBC (0-1)
--- NOTE | 2022-06-09 10:21 | NUR ---
PT SEEN DROWSY, ABLE TO WAKE WHEN STIMULATED, VERY WEAK. PT ABLE TO TAKE HIS MEDS WITH SOME DIFFICULTY. IS AT BEDSIDE.
--- NOTE | 2022-06-09 13:22 | NUR ---
PT TO CT SCAN EARLIER, RESULTS COMMUNICATED TO . PT REMAINS LETHARGIC BUT RESPONDS ABLE. VERY WEAK.
--- NOTE | 2022-06-09 15:10 | NUR ---
S: JEWEL ARTEAGA is a 67 M who presents with pneumonia, anemia, HTN. He has a history of Stage IV lung cancer, HTN, lung disease, high cholesterol, GERD. All medications in patient's chart were reviewed. O: VS: BP 104/60 mmHg, P 83 bpm, RR 18 bpm,T 97.7 F W 80.3 kg, HT 74 inch, Scr= 0.8 mg/dl, CrCl= 103.2 ml/min Vancomycin trough = 21 ug/ml A: Blood culture shows no growth after 5 days. Vancomycin troughh is higher than the goal level (15-20) P: Patient is on cefepime 2 g iv q8h. Vancomycin ordered for pharmacy to dose. Decrease Vancomycin dose from 750 mg to 500 mg IV Q12H. Vancomycin trough is drawn before the 4th dose on 06/11/22. Vancomycin goal trough is between 15-20 mcg/ml. Pharmacy will follow and or advise on antibiotics use as needed.
--- NOTE | 2022-06-09 16:27 | NUR ---
PT REMAINS AT REST IN THE BED, IS ABLE TO OPEN EYES WHEN ROUSED. PT ABLE TO SAY THAT HIS IS NEMESIO.
--- NOTE | 2022-06-09 20:00 | NUR ---
RECEIVED REPORT FROM NURSE MIRELES, PATIENT RESTING IN BED, HOOKED ON O2 @ 2LPM VIA NC, NON PRODUCTIVE COUGH, SHALLOW BREATHING EXERTIONAL DYSPNEA NOTED, WITH ONGOING IV NS @ KVO INFUSING WELL ON LAC, HOOKED ON TELEMETRY, GENERALIZED EDEMA NOTED, BUE ELEVATED WITH PILLOW, INDWELLING FOLEET CATHETER DRAINING YELLOW COLORED URINE, FAMILY IN ROOM CALL LIGHT IN REACH.
--- NOTE | 2022-06-09 23:57 | NUR ---
PATIENT AWAKE AT THIS TIME, REMAINS ON O2 @ 2LPM, NOT IN DISTRESS, CALL LIGHTIN REACH.
--- NOTE | 2022-06-10 04:15 | NUR ---
PATIENT RESTING IN BED, NO DISCOMFORTS NOTED AT THIS TIME, REMAINS ON O2 @ 2LPM VIA NC, CALL LIGHT IN REACH.
[2022-06-10 04:26] VITALS: BP 134/85
[2022-06-10 06:03] LABS: HEMATOCRIT 26.1 % (39.0-50.0); HEMOGLOBIN 8.4 g/dl (14.0-18.0); MEAN CELL VOLUME 96.3 fL CALC (80.0-100.0); MEAN CORPUSCULAR HGB CONC 32.2 g/dL CAL (32.0-36.0); PLATELET COUNT 115 thou/uL (130-400); RED BLOOD COUNT 2.71 mill/uL (4.70-6.10); RED CELL DISTRI WIDTH 22.5 % (11.5-15.5)
[2022-06-10 06:25] LABS: ALBUMIN 2.6 g/dL (3.2-5.0); ALKALINE PHOSPHATASE 329 u/l (38-126); ANION GAP 4 (6-22 (CALC)); BILIRUBIN, TOTAL 0.8 mg/dL (0.2-1.3); BUN 18 mg/dL (8-23); BUN/CREATININE RATIO 19 (12-20 (CALC)); CARBON DIOXIDE 26 mmol/l (22-30); CHLORIDE 106 mmol/l (95-108); GFR FOR AFR.AMER. > 60 ML/MIN (>=60 (CALC)); GFR OTHER RACES > 60 ML/MIN (>=60 (CALC)); IMMATURE GRANULOCYTES 15.8 % (0.0-5.0); MAGNESIUM 2.1 mg/dL (1.6-2.3); MANUAL DIFFERENTIAL YES; POTASSIUM 3.6 mmol/l (3.5-5.1); SGOT/AST 42 u/l (19-48); SODIUM 133 mmol/l (137-146); TOTAL PROTEIN 5.9 g/dL (6.3-8.2)
[2022-06-10 06:32] LABS: BAND 4 % (0-8)
[2022-06-10 06:34] LABS: NUCLEATED RED BLOOD CELL 4 /100WBC (0-1)
[2022-06-10 06:48] VITALS: BP 104/65
--- NOTE | 2022-06-10 08:00 | NUR ---
PT LAYING I NBED WITH HEAD OF BED UP, AWAKE AND ALERT TO SELF. PT HAS C/O PAIN IN BILAT LEGS AT 3 ON PAIN SCALE. IV TO RAC PATENT AND CLEAN WITH NS @20 ML/HR. O2 @ 2 LITER ON VIA NC. ELKINS INTACT WITH CLEAR, DARK YELLOW URINE. TELE ON WITH ALL LEADS ATTACHED. PT AT BEDISIDE , CALL LIGHT WITHIN REACH AND ALL SAFETY MEASURES IN PLACE.
--- NOTE | 2022-06-10 08:45 | NUR ---
PT LAYING IN BED WITH C/O BILAT LEG PAIN DECSRIBED BURNING AT 8/10 ON PAIN SCALE. PAIN MEDICATION GIVEN ORDERED, WILL REASSESS PAIN.
[2022-06-10] MEDS ORDERED: CARAFATE1 GM/10 ML PO (10:31)
[2022-06-10] MEDS ORDERED: LEVAQUIN750 M1 PO (10:32)
--- NOTE | 2022-06-10 10:57 | NUR ---
PT ABD IS FIRM WITH ACTIVE BS, LAST OVER 72 HOURS. MIRALAX NOT EFFECTIVE. SUPPOSITORY GIVEN ORDERED.
[2022-06-10 10:59] VITALS: BP 111/72
[2022-06-10 11:00] VITALS: BP 111/72
--- NOTE | 2022-06-10 12:20 | NUR ---
PT LAYING IN BED SLEEPING, AROUSED TO VOICED. PT AT BEDSIDE. PT HAS NO C/O PAIN AT THIS TIME. IV SITE TO RAC INTACT WITH NS @ 20 ML/HR. ELKINS INTACT AND DRAINING CLEAR, DARK YELLOW URINE. PT CALL LIGHT WITHIN REACH AND SAFETY MEASURES IN PLACE.
--- NOTE | 2022-06-10 13:29 | NUR ---
pt on 3L NC sat 94%
--- NOTE | 2022-06-10 13:51 | NUR ---
Discharge instructions given. Patient verbalizes understanding of same. Discharged in stable condition via Medical Transport to Home with spouse. All belongings sent with pt.
== END 2022-06-10 13:53 | disposition home health service (06) | DRG 871 ==
LOC: ED 22:28 → ED-I 06-04 00:05 → ED 06-04 00:36 → MS2 06-04 00:37
PROVIDERS: Family Medicine; Internal Medicine; Nurse Practitioner Family; ADMIT Internal Medicine; ATTEND Internal Medicine
PROC: 30233N1 Transfusion of Nonautologous Red Blood Cells into Peripheral Vein, Percutaneous Approach (ICD-10-PCS; principal; 2022-06-04)
PROC: 30233N1 Transfusion of Nonautologous Red Blood Cells into Peripheral Vein, Percutaneous Approach (ICD-10-PCS; 2022-06-04)
PROC: 30233N1 Transfusion of Nonautologous Red Blood Cells into Peripheral Vein, Percutaneous Approach (ICD-10-PCS; 2022-06-07)
DX: A41.9 Sepsis, unspecified organism (principal); J18.9 Pneumonia, unspecified organism; C34.90 Malignant neoplasm of unspecified part of unspecified bronchus or lung; C79.51 Secondary malignant neoplasm of bone; E87.1 Hypo-osmolality and hyponatremia; D62 Acute posthemorrhagic anemia; M84.550A Pathological fracture in neoplastic disease, pelvis, initial encounter for fracture; E87.20 Acidosis, unspecified; D63.8 Anemia in other chronic diseases classified elsewhere; E86.0 Dehydration; I10 Essential (primary) hypertension; R74.8 Abnormal levels of other serum enzymes; R60.0 Localized edema; R44.1 Visual hallucinations; R41.0 Disorientation, unspecified; E78.00 Pure hypercholesterolemia, unspecified; K21.9 Gastro-esophageal reflux disease without esophagitis; Z95.828 Presence of other vascular implants and grafts; Z87.19 Personal history of other diseases of the digestive system; Z20.822 Contact with and (suspected) exposure to COVID-19
CPT/HCPCS: J0692; J3370; P9016; S0164

== ENCOUNTER 2022-06-11 11:08 | Inpatient (IN) | payer MEDICARE ==
[2022-06-11] VITALS (84 sets, daily range): BP systolic 64–117; BP diastolic 37–81
[~2022-06-11] VITALS: Ht 188 cm; Wt 97.0 kg
[~2022-06-11 11:08] MED LIST changes: +ATORVASTATIN CA80 MG PO; +BACTRIM DS1 TAB PO; +CARAFATE1 GM/10 ML PO; +DOCUSATE SOD100 MG PO; +IPRATROPIU0.5 MG/3 M IN; +LEVAQUIN750 M1 PO; +LISINOPRIL5 MG PO; +METOPROL TAR25 MG PO; +MIRTAZAPINE15 MG PO; +PEG 3350 XX; +PROTONIX40 M2 PO; +TAMSULOSIN HCL0.4 MG PO
--- NOTE | 2022-06-11 11:35 | NUR ---
PT CAME IN VIA MEDICAL TRANSPORT WITH C/O HYPOTENSION SINCE THIS AM. WAS SENT [facility]. ACCOMPAINED PT. PROVIDER NOTIFIED
[2022-06-11 11:55] LABS: HEMATOCRIT 28.8 % (39.0-50.0); HEMOGLOBIN 8.9 g/dl (14.0-18.0); MEAN CORPUSCULAR HGB 30.3 pG CALC (26.0-32.0); MEAN CORPUSCULAR HGB CONC 30.9 g/dL CAL (32.0-36.0); PLATELET COUNT 117 thou/uL (130-400); RED BLOOD COUNT 2.94 mill/uL (4.70-6.10); RED CELL DISTRI WIDTH 23.2 % (11.5-15.5)
[2022-06-11 12:09] LABS: ALBUMIN 2.9 g/dL (3.2-5.0); ALKALINE PHOSPHATASE 356 u/l (38-126); ANION GAP 6 (6-22 (CALC)); BILIRUBIN, TOTAL 0.6 mg/dL (0.2-1.3); BUN 23 mg/dL (8-23); BUN/CREATININE RATIO 21 (12-20 (CALC)); CARBON DIOXIDE 23 mmol/l (22-30); CHLORIDE 107 mmol/l (95-108); CREATININE 1.1 mg/dL (0.7-1.3); GFR FOR AFR.AMER. > 60 ML/MIN (>=60 (CALC)); GFR OTHER RACES > 60 ML/MIN (>=60 (CALC)); POTASSIUM 3.6 mmol/l (3.5-5.1); SGOT/AST 41 u/l (19-48); SODIUM 132 mmol/l (137-146); TOTAL PROTEIN 6.3 g/dL (6.3-8.2)
[2022-06-11 12:18] LABS: IMMATURE GRANULOCYTES 14.3 % (0.0-5.0); MANUAL DIFFERENTIAL YES
[2022-06-11 12:19] LABS: BAND 3 % (0-8); NUCLEATED RED BLOOD CELL 13 /100WBC (0-1); PLATELET ESTIMATE NORMAL
--- NOTE | 2022-06-11 12:37 | NUR ---
PT REDTING. LETHARGIC AND RESPONSIVE. AT BEDSIDE. VITALS STABLE
--- NOTE | 2022-06-11 12:58 | NUR ---
PT VITALS STABLE. SPOUSE AT BEDSIDE. CRITICAL PT, RN MONITORING
--- NOTE | 2022-06-11 13:18 | NUR ---
SPOUSE AT BEDSIDE. VITALS STABLE
[2022-06-11 13:31] LABS: URINE BILIRUBIN - DIPSTICK NEGATIVE (NEGATIVE); URINE BLOOD DIPSTICK MODERATE (NEGATIVE); URINE COLOR YELLOW; URINE GLUCOSE - DIPSTICK NEGATIVE (NEGATIVE); URINE KETONE TRACE mg/dL (NEGATIVE); URINE LEUK ESTERASE NEGATIVE (NEGATIVE); URINE PH 5.5 (4.5-8.0); URINE PROTEIN - DIPSTICK 100 mg/dL (NEG-TRACE); URINE SPECIFIC GRAVITY 1.025; URINE UROBILINOGEN - DIPSTICK 0.2 E.U./dL (0.2)
[2022-06-11 13:32] LABS: URINE NITRITE - DIPSTICK NEGATIVE (Negative)
[2022-06-11 13:34] LABS: URINE CASTS MODERATE lpf (NONE-RARE); URINE WBC 0-2 WBC/hpf (0-5)
--- NOTE | 2022-06-11 13:45 | NUR ---
PT TO CT SCAN, THIS NURSE TRANSPORTED WITH PT. VITAL SIGNS STABLE. PT REDPONDS TO COMMAND
--- NOTE | 2022-06-11 14:42 | NUR ---
PT AND VITALS STABLE. SPOUSE AT BEDSIDE. ROVIDER IN TO SPEAK WITH . PT RESTING
--- NOTE | 2022-06-11 15:15 | NUR ---
PT AND VITALS STABLE. SPOUSE AT BEDSIDE. PT RESTING
--- NOTE | 2022-06-11 16:01 | NUR ---
PT ARRIVED VIA STRETCHER WITH PHOTO MASK PATTERN GENERATOR. PT MAX ASSIST. BED SIDE REPORT RECIVED. PT ON O2 VIA NC LIJ TRIPLE LUMEN, FLUSHED. ELKINS INTACT DRAINING URINE VIA GRAVITY. ORIENATTED PT TO ROOM AND CALL [facility] FAMILY MEMBER AT BEDSIDE TELE MONITOR IN PLACE, CONTINIUS MONITORING PER ED.
--- NOTE | 2022-06-11 20:00 | NUR ---
RECEIVED REPORT FROM NURSE KENNETH, PATIENT RESTING IN BED, HOOKED ON O2 @ 2LPM VIA NC, BREATHIMG SHALLOW, EXERTIONAL DYSPNEA NOTED, HAS A TRIPPLE LUMEN LIJ PATENT FLUSHES WELL, ON TELEMETRY BOX # [address] 89, HAS A ELKINS CATHETER DRAINING YELLOW COLORED URINE, GENERALIZED EDEMA NOTED BILAT ARMS AND BOTH LEGS, +2 ON RT LEG AMD +1 ON LEFT LEG, NOTED SCATTERED BRUSING ON BOTH ARMS. CALL LIGHT IN RFEACH.
[2022-06-12] VITALS (9 sets, daily range): BP systolic 87–104; BP diastolic 46–66
--- NOTE | 2022-06-12 | NUR ---
PATIENT RESTING IN BED, REMAINS ON O2 @ 2LPM VIA NC, BREATHING SHALLOW, NOT IN DISTRESS CALL LIGHT IN REACH.
--- NOTE | 2022-06-12 04:00 | NUR ---
PATIENT HAS DUE LABS, OBTAINED FROM TRIPLE LUMEN IJ AND FLUSHED PER PROTOCOL, DENIED PAIN AT THIS TIME.
[2022-06-12 06:05] LABS: BASO% 0.8 % (0-3); EOS% 4.4 % (0-8); HEMATOCRIT 24.3 % (39.0-50.0); HEMOGLOBIN 7.7 g/dl (14.0-18.0); LYMPH% 29.9 % (15-41); MEAN CELL VOLUME 99.2 fL CALC (80.0-100.0); MEAN CORPUSCULAR HGB 31.4 pG CALC (26.0-32.0); MEAN CORPUSCULAR HGB CONC 31.7 g/dL CAL (32.0-36.0); MONO% 11.6 % (2-13); NEUT# 2.53 thou/uL (1.82-7.42); NEUT% 37.8 % (42-76); RED BLOOD COUNT 2.45 mill/uL (4.70-6.10); RED CELL DISTRI WIDTH 23.1 % (11.5-15.5)
[2022-06-12 06:13] LABS: IMMATURE GRANULOCYTES 15.5 % (0.0-5.0)
[2022-06-12 06:26] LABS: ALKALINE PHOSPHATASE 312 u/l (38-126); ANION GAP 6 (6-22 (CALC)); BILIRUBIN, TOTAL 0.6 mg/dL (0.2-1.3); BUN 25 mg/dL (8-23); BUN/CREATININE RATIO 18 (12-20 (CALC)); CARBON DIOXIDE 22 mmol/l (22-30); CHLORIDE 108 mmol/l (95-108); CREATININE 1.4 mg/dL (0.7-1.3); GFR FOR AFR.AMER. > 60 ML/MIN (>=60 (CALC)); GFR OTHER RACES 51 ML/MIN (>=60 (CALC)); MAGNESIUM 1.9 mg/dL (1.6-2.3); POTASSIUM 3.7 mmol/l (3.5-5.1); SGOT/AST 35 u/l (19-48); SODIUM 133 mmol/l (137-146); TOTAL PROTEIN 5.1 g/dL (6.3-8.2)
[2022-06-12 06:31] LABS: ALBUMIN 2.3 g/dL (3.2-5.0)
--- NOTE | 2022-06-12 07:25 | NUR ---
PT RESTING IN LOW FOWLERS POSITION. PT ASSESSMENT AND VS COMPLETED HEART RHYTHM ON TELE. RESPIRATIONS ON 2LNC. PT HAS TRIPLE LUMEN CATH NS INFUSING AT 100. ALL SAFETY PRECAUTIONS IN PLACE WITH BED ALARM ACTIVE. CALL LIGHT IN PLACE.
--- NOTE | 2022-06-12 11:48 | NUR ---
PT RESTING IN LOW FOWLERS POSITION PT FAMILY AT BEDSIDE. PT MAX ASSIST.
--- NOTE | 2022-06-12 14:52 | NUR ---
S: JEWEL ARTEAGA is a 67 M who presents with SOB COUGH. He has a history of LUNG CANCER. All medications in patient's chart were reviewed. O: VS: BP 104/62 , P92, RR 18,T 97.1 W 79kg HT 74IN, Scr=1.4 A: Blood culture <is pending P: Patient is on CEFEPIME 2G Q12H . Vancomycin ordered for pharmacy to dose. Start Vancomycin 1250MG IV Q12H. Vancomycin trough is drawn before the 4th dose on 06/13/22 0330. Vancomycin goal trough is between <10-20 mcg/ml>. Pharmacy will follow and or advise on antibiotics use as needed.
--- NOTE | 2022-06-12 16:42 | NUR ---
PT RESTING INSEMI FOWLERS POSITION WITH ARM ELEVATED. PT ABLE TO TAKE PO MEDS WITH APPLE SAUCE . MEDICATED PER EMAR. FAMILY AT BEDSIDE.
--- NOTE | 2022-06-12 19:37 | NUR ---
PT RESTING IN SEMI FOWLERS POSITION. PT UNABLE TO STATE NOTED AND , STATES HE HAS BEEN VERY WEAK. PT WILL NOD AND SHAKE HEAD TO YES OR NO QUESTIONS. RESPIRATIONS SHALLOW, O2 STABLE ON 2L NC. LUNG SOUNDS WHEEZING. PRN BREATHING TREATMENT PROVIDED. HEART RHYTHM NORMAL WITH TELE IN PLACE. BOWEL SOUNDS ACTIVE. LIJ INFUSING AT KVO, SITE PATENT. #20G LAC PATENT. SWELLING NOTED THROUGHOUT BODY WITH SCATTERED BRUISING. 3+ NOTED TO RIGHT ARM. 2+ TO BLE NOTED.PEDAL PULSES WEAK, MODERATE PULSERS NOTED TO DOPPLER. RIGHT FOOT COLD TO TOUCH. PT RESPOITIONED WITH PILLOWS. SLIGHT REDNESS NOTED TO BUTTOCKS, REPOSITIONING ENFORCED. ELKINS CATH DRAINING PER GRAVITY YELLOW UA NOTED. PT DENIES OF ANY PAINS OR DISCOMFORTS AT THIS TIME. ALL SAFTEY PRECAUTIONS ARE IN PLACE WITH CALL LIGHT IN REACH.
[2022-06-13] VITALS (10 sets, daily range): BP systolic 85–114; BP diastolic 45–71
--- NOTE | 2022-06-13 00:18 | NUR ---
PT SLEEPING IN SEMI FOWLERS POSITION. RESPIRATIONS SHALLOW ON 2L NC. TELE MONITORING IN PLACE. LIJ INFUSING WITH IVF PER ORDER, SITE PATENT. ELKINS CATH DARINING PER GRAVITY. NO S/S OF ANY DISTRESS. ALL SAFTEY PRECAUTIONS ARE IN PLACE WITH CALL LIGHT IN REACH. BED ALARM ACTIVE
[2022-06-13 03:49] LABS: HEMATOCRIT 23.5 % (39.0-50.0); HEMOGLOBIN 7.3 g/dl (14.0-18.0); MEAN CELL VOLUME 98.3 fL CALC (80.0-100.0); MEAN CORPUSCULAR HGB 30.5 pG CALC (26.0-32.0); MEAN CORPUSCULAR HGB CONC 31.1 g/dL CAL (32.0-36.0); RED BLOOD COUNT 2.39 mill/uL (4.70-6.10); RED CELL DISTRI WIDTH 23.5 % (11.5-15.5)
[2022-06-13 04:07] LABS: ALBUMIN 2.3 g/dL (3.2-5.0); BILIRUBIN, TOTAL 0.4 mg/dL (0.2-1.3); CREATININE 1.9 mg/dL (0.7-1.3); POTASSIUM 3.8 mmol/l (3.5-5.1); TOTAL PROTEIN 5.3 g/dL (6.3-8.2)
--- NOTE | 2022-06-13 04:25 | NUR ---
0400 KARLI HELD DUE TO THROUGH RESULTING IN 38
--- NOTE | 2022-06-13 04:44 | NUR ---
PT RESPOSITIONED IN BED. RESPIRATIONS LABORED ON 2L NC. VSS. TELE MONITORING IN PLACE. LIJ INFUSING WITH IVF PER ORDER, SITE PATENT. ELKINS CATH DRAINING PER GRAVITY. MINIMAL DUONG URINE NOTED. PT DENIES OF ANY NEEDS. ALL SAFTEY PRECAUTIONS ARE IN PLACE WITH CALL LIGHT IN REACH. BED ALARM ACTIVE
--- NOTE | 2022-06-13 09:53 | NUR ---
S: JEWEL ARTEAGA is a 67 M who presents with SOB . He has a history of CANCER. All medications in patient's chart were reviewed. O: VS: BP 100/58, RR 20 T 97.4 W 79KG, HT74IN, Scr=1.9CrCl= <ml/min> A: Blood culture <is pending P: Patient is on CEFEPIME 2 GRAM Q12H Vancomycin ordered for pharmacy to dose. HOLD Vancomycin FOR TROUGH OF 38. RECHECK TROUGH ON 06/14/22 @0700 Vancomycin goal trough is between <10-20 mcg/ml>. Pharmacy will follow and or advise on antibiotics use as needed.
--- NOTE | 2022-06-13 10:28 | NUR ---
PT SEEN AT REST IN THE BED, APPEARS WEAK. PT DOES RESPOND WHEN ROUSED, ABLE TO SWALLOW PILLS WITH APPLESAUCE. NEMESIO IS AT BEDSIDE. LUNGS SOUNDS ARE COARSE, WHEEZING HEARD AFTER COUGHING.
--- NOTE | 2022-06-13 13:48 | NUR ---
BLOOD TRANSFUSION IN PROGRESS AT THIS TIME, NO ADVERSE REACTION NOTED. PT CONTINUES TO SOUND LOOSE IN CHEST, PRODUCTIVE COUGH.
--- NOTE | 2022-06-13 16:14 | NUR ---
BLOOD TRANSFUSION COMPLETED WITHOUT ADVERSE EFFECT. PT REMAINS LETHARGIC IN THE BED, OCCASIONALLY ROUSED TO TAKE A MEDICINE OR ANSWER A QUESTION.
--- NOTE | 2022-06-13 18:03 | NUR ---
PT CLEANED UP FOR SMALL STOOL OUTPUT, WHICH WAS SENT TO LAB. HE REMAINS WEAK, BARELY ABLE TO OPEN HIS EYES AT TIMES.
--- NOTE | 2022-06-13 20:00 | NUR ---
PT IN BED RESTING WITH EYES CLOSED. BREATHING IS UNLABORED. IS AT BEDSIDE. PT HAS AN LEFT IJ TRIPLE LUMEN, BLUE LUMEN IS CLOG. I ATTEMPT TO FLUSH, BUT UNSUCESSFUL. LUNGS SOUNDS WHEEZING. PT ON O2 4L VIA NASAL CANNULA. MEDS ADMINISTER ORDER PER JUN. PT IS NON VERBAL. PT ON TELE. STATES PT IS APETTITE IS POOR, BUT IS ABLE TO DRINK CLEAR ENSURE. ELKINS IN PLACE DRAING WELL, URINE IS YELLOW AND CLEAR. CALL LIGHT IN REACH AND BED IN LOWEST POSITION.
--- NOTE | 2022-06-14 00:35 | NUR ---
PT IN BED RESTING WITH EYES CLOSED BREATHING EVEN AND UNLABORED. NO S/S OF DISTRESS NOTED CALL LIGHT IN REACH AND BED IN LOWEST POSITION.
--- NOTE | 2022-06-14 04:37 | NUR ---
PT IN BED RESTING WITH EYES CLOSED BREATHING EVEN AND UNLABORED. NO S/S OF DISTRESS NOTED. CALL LIGHT IN REACH AND BED IN LOWEST POSITION.
[2022-06-14 06:25] LABS: HEMATOCRIT 26.1 % (39.0-50.0); HEMOGLOBIN 8.1 g/dl (14.0-18.0); MEAN CELL VOLUME 96.7 fL CALC (80.0-100.0); RED BLOOD COUNT 2.7 mill/uL (4.70-6.10)
[2022-06-14 06:44] LABS: ALBUMIN 2.5 g/dL (3.2-5.0); CREATININE 2.3 mg/dL (0.7-1.3); MAGNESIUM 1.9 mg/dL (1.6-2.3); POTASSIUM 3.6 mmol/l (3.5-5.1); TOTAL PROTEIN 5.5 g/dL (6.3-8.2)
[2022-06-14 06:45] LABS: BILIRUBIN, TOTAL 0.7 mg/dL (0.2-1.3)
[2022-06-14 06:49] VITALS: BP 114/74
--- NOTE | 2022-06-14 07:30 | NUR ---
SHIFT CHANGE REPORT, PT AWAKE AND LETHARGIC, HE DOES NOT RESPOND VERBALLY BUT WILL FOLLOW COMMANDS WITH ENCOURAGEMENTS, UPPER EXT EXTREMELY EDEMATOUS AND WEEPING PROFUSELY, GENERALISED EDEMA, O2 @ 2L VIA NC IN PLCE TELE NONITOR IN PLACE, ARMS AND LEGS ELAVATED, ELKINS CATHETER IN PLACE WITH SMALL AMT CLEAR YELLOW URINE, CALL FRENCH IN REACH AND BED LOCKED IN LOWEST POSITION.
[2022-06-14 08:19] VITALS: BP 118/72
[2022-06-14 11:00] VITALS: BP 114/66
--- NOTE | 2022-06-14 13:10 | NUR ---
SPOUSE AT BEDSIDE ASSISTING WITH CARE, PT EXTREMELY WEAK AND LETHARGIC, ELKINS CATHETER PRODUCING MIMIMAL QUANTITY URINE, APPETITE VERY POOR, WILL CONTINUE TO MONITOR.
--- NOTE | 2022-06-14 14:56 | NUR ---
CALLISTHENICS INSTRUCTOR JUST REPORTED 14 BEATS V-TACH WITH 1 SEC PAUSE THEN 4 ORE BEATS V-TACH NOTIFIED, NO NEW ORDERS RECEIVED, WILL CONTINUE TO MONITOR
[2022-06-14 15:01] VITALS: BP 101/60
--- NOTE | 2022-06-14 16:00 | NUR ---
FAMILY AT BEDSIDE, PT HAS NOT SPOKEN ONE WORD BUT DOES EXPRESS REFUSAL OF ORAL INTAKE BY USING BODY LANGUAGE (HEAD SHAKE). APPETITE REMAINS VERY POOR BUT SPOUSE TRIES TO ENCOURAGE AND ASSIST HIM WITH EATING/DRINKING AND TAKING MEDS.
[2022-06-14 19:10] VITALS: BP 104/66
--- NOTE | 2022-06-14 19:15 | NUR ---
PT IN RESTING IN BED, NO S/S OF DISTRESS NOTED. PT IS NON VERBAL JUST SHAKES HEAD NO. FAMILY MEMBER IS AT BED SIDE. NO NEEDS OR CONCERN VOICED AT THIS TIME. CALL LIGHT IN REACH AND BED IN LOWEST POSITION.
--- NOTE | 2022-06-14 21:00 | NUR ---
PT IN BED NO S/S OF DISTRESS NOTED. PT IS REFUSING MEDS BUT IS ENCURAGING PT TO TAKE THEM. MED ADMINISTERED ORDER PER MAR. I ASK PATIENT IF HE IS PAIN BUT NO RESPONCE. FAMILY AT BED SIDE. PT HAS A LEFT IJ SL. ELKINS CATH DRAING WELL URINE YELLOW AND CLEAR. CALL LIGHT IN REACH AND BED IN LOWEST POSITION.
--- NOTE | 2022-06-14 22:00 | NUR ---
FAMILY DECIDE TO CHANGE PT CODE STATUS TO DNR. DR SOSA NOTIFY. INFORMATION RESOURCES DIRECTOR BRIGITTE Funes AND I WITNESS SIGN DNR FORM. FORM IN FILE.
[2022-06-15] VITALS (15 sets, daily range): BP systolic 90–129; BP diastolic 57–73
--- NOTE | 2022-06-15 00:54 | NUR ---
PT IN BED RESTING WITHEYES CLOSED BREATHING EVEN AND UNLABORED. NO S/S OF DISTRESS NOTED. CALL LIGHT IN REACH AND BED IN LOWEST POSITION. FAMILY AT BED SIDE.
--- NOTE | 2022-06-15 04:32 | NUR ---
PT IN BED RESTING WITH EYES CLOSED BREATHING EVEN AND UNLABORE. NO S/S OF DISTRESS NOTED. CALL LIGHT INI REACH AND BED IN LOWEST POSITION. FAMILY AT BEDSIDE.
[2022-06-15 07:13] LABS: HEMATOCRIT 24.5 % (39.0-50.0); HEMOGLOBIN 7.7 g/dl (14.0-18.0); MEAN CELL VOLUME 96.5 fL CALC (80.0-100.0); MEAN CORPUSCULAR HGB 30.3 pG CALC (26.0-32.0); MEAN CORPUSCULAR HGB CONC 31.4 g/dL CAL (32.0-36.0); RED BLOOD COUNT 2.54 mill/uL (4.70-6.10); RED CELL DISTRI WIDTH 23.8 % (11.5-15.5)
[2022-06-15 07:22] LABS: ALBUMIN 2.4 g/dL (3.2-5.0); BILIRUBIN, TOTAL 0.6 mg/dL (0.2-1.3); CREATININE 2.8 mg/dL (0.7-1.3); POTASSIUM 3.6 mmol/l (3.5-5.1); TOTAL PROTEIN 5.5 g/dL (6.3-8.2)
--- NOTE | 2022-06-15 08:00 | NUR ---
SHIFT CHANGE REPORT AT BEDSIDE, PT RESTING QUIETLY IN SUPINE POSITION, NO SIGN DISCOMFORT, O2 @ 2L VIA NC IN PLACE, TELE MONITOR IN PLACE, ARMS REMAIN EDEMATOUS AND WEEPING ESPECIALLY RIGHT ARM, THEY ARE ELEVATED ON PILLOWS, FAMILLY AT BEDSIDE, CALL FRENCH IN REACH AND BED LOCKED IN LOWEST POSITION.
--- NOTE | 2022-06-15 09:47 | NUR ---
CALLED IN A PHYSICIAN'S CONSULT TO DR MILES'S OFFICE. I SPOKE WITH JESÚS AT 0946 HRS.
--- NOTE | 2022-06-15 14:09 | NUR ---
PT REMAINS NON-VERBAL, SPOUSE AND FAMILY AT BEDSIDE, PRBC STARTED @ 1408, WILL CONTINUE TO MONITOR, VITAL SIGNS BEING MEASURED AND RECORDED.
--- NOTE | 2022-06-15 16:00 | NUR ---
PT STILL DOES NOT RESPOND VERBALLY AND REFUSES ORAL INTAKE, FAMILY AT BEDSIDE AND STRONGLY ENCOURAGES HIM TO HAVE ORAL INTAKE BUT HE IS VERY RESISTANT AND FAMILY VERY INSISTENT, BED BATH, CÉSAR CARE AND COMPLETE LINNEN CHANGE DONE INCLUDING BACK MASSAGE.
--- NOTE | 2022-06-15 20:00 | NUR ---
RECEIVED REPORT FROM NURSE IGNACIO, PATIENT RESTING IN BED, HOOKE ON O2 @ 2LPM VIA NC, BREATHING SHALLOW, UNLABORED, HAS TRIPLE LUMEN IJ SALINE LOCK, TWO LUMEN EXCEPT BLUE FLUSHES WITH GOOD BOOD RETURN, HOOKED ON TLEMETRY, NOTED WEEPING ON RUE, ELEVATED, SCROTAL EDEMA ALSO NOTED, BLE ELEVATED WITH PILLW, NOTED EDEMA ALSON, PATIENT NON VERBAL, IN ROOM CALL LIGHT IN REACH.
--- NOTE | 2022-06-15 23:39 | NUR ---
PATIENT RESTING IN BED, REMAINS ON O2 @ 2LPM VIA NC, BREATHING SHALLOW, UNLABORED, INFUSING ALBUMIN, CALL LIGHT IN REACH.
--- NOTE | 2022-06-16 03:41 | NUR ---
PATIENT RESTING IN BED, MOUTH SUCTIONED, REMAINS ON O2 @ 2LPM VIA NC, SHALLOW BREATHING, RHONCHI NOTED ON AUSCULTATION, CALL LIGHT IN REACH.
[2022-06-16 04:25] VITALS: BP 121/82
[2022-06-16 04:55] LABS: HEMATOCRIT 25.8 % (39.0-50.0); HEMOGLOBIN 8.2 g/dl (14.0-18.0); MEAN CELL VOLUME 94.9 fL CALC (80.0-100.0); MEAN CORPUSCULAR HGB 30.1 pG CALC (26.0-32.0); MEAN CORPUSCULAR HGB CONC 31.8 g/dL CAL (32.0-36.0); RED BLOOD COUNT 2.72 mill/uL (4.70-6.10); RED CELL DISTRI WIDTH 22.6 % (11.5-15.5)
--- NOTE | 2022-06-16 05:22 | NUR ---
RESPIRATORY IN ROOM, BREATHING TREATMENT GIVEN.
[2022-06-16 05:26] LABS: CREATININE 3.3 mg/dL (0.7-1.3); POTASSIUM 3.7 mmol/l (3.5-5.1)
[2022-06-16 05:41] LABS: ALBUMIN 3.1 g/dL (3.2-5.0)
[2022-06-16 07:17] VITALS: BP 131/83
--- NOTE | 2022-06-16 08:00 | NUR ---
PT WITH FAMILY MEMBER AT BEDSIDE. ASSESSMENT COMPLETED. UPDATED PT FAMILY MEMBER IN CURRENT PLAN OF CARE. TELE MONITOR IN PLACE. CONTINOUS MONITORING PER ED. ELKINS IN PLACE DRAINING URINE VIA GRAVITY. SHOWING YELLOW URINE. FALL/SAFTEY PRECAUTION INPLACE. CALL LIGHT WITHIN REACH
[2022-06-16 08:55] LABS: URINE BILIRUBIN - DIPSTICK NEGATIVE (NEGATIVE); URINE BLOOD DIPSTICK LARGE (NEGATIVE); URINE COLOR YELLOW; URINE GLUCOSE - DIPSTICK NEGATIVE (NEGATIVE); URINE KETONE TRACE mg/dL (NEGATIVE); URINE LEUK ESTERASE NEGATIVE (Negative); URINE NITRITE - DIPSTICK NEGATIVE (Negative); URINE PH 5.5 (4.5-8.0); URINE PROTEIN - DIPSTICK 100 mg/dL (NEG-TRACE); URINE UROBILINOGEN - DIPSTICK 0.2 E.U./dL (0.2)
[2022-06-16 09:03] LABS: URINE CLARITY HAZY
[2022-06-16 09:05] LABS: URINE AMORPH SEDIMENT MANY hpf (NONE-FER)
[2022-06-16 09:06] LABS: URINE MUCUS MODERATE hpf (NONE-FEW)
[2022-06-16 11:31] VITALS: BP 123/74
--- NOTE | 2022-06-16 12:00 | NUR ---
PT SLEEPING WITH FAMILY MEMBER AT BEDSIDE. NO DISTRESS NOTED. FALL/SAFTEY PRECAUTIONS IN PLACE. CALL LIGHT WITHIN REACH
[2022-06-16 15:14] VITALS: BP 128/76
--- NOTE | 2022-06-16 16:00 | NUR ---
PT SLEEPING WITH FAMILY MEMBER AT BED SIDE. BREATHING LABORED. REPOSTIONED. ELKINS IN PLACE, DRAINING URINE VIA GRAVITY. TELE MONITOR IN PLACE. CONTINOUS MONITORING PER ED. FALL/SAFETY PRECAUTION IN PLACE. CALL LIGHT WITHIN REACH.
--- NOTE | 2022-06-16 17:12 | NUR ---
PT DIFFICULTY SWALLOWING MEDICATIONS. MD NOTIFIED/AWARE.
[2022-06-16 18:58] VITALS: BP 122/72
--- NOTE | 2022-06-16 20:10 | NUR ---
PT RESTING ON BED, NON VERBAL; PT UNABLE TO SATED NAME OR . TELEMETRY IN PLACE. O2 @ 2L VIA NASAL CANNULA IN PLACE. BRUISING NOTED TO UPPER EXTREMITIES. IJ TO LEFT SIDE NOTED. HYPOACTIVE BOWEL SOUNDS X4 QUADRANTS. PT LETHARGIC, OFFERED ORAL FLUIDS BUT PT UNABLE TO DRINK. PT REMAINS ON AIR MATTRESS. SAFETY PRECAUTIONS IN PLACE WITH CALL LIGHT IN REACH.
[2022-06-16 23:54] VITALS: BP 117/71
--- NOTE | 2022-06-17 00:15 | NUR ---
PT ON BED. AT BEDSIDE. PT SHOWED DISCOMFORT, MOVING HEAD CONSTANTLU FROM SIDE TO SIDE. PT'S REQUESTED SOMETHING FOR ANXIETY SINCE PT IS UNABLE TO REST. DR JUÁREZ NOTIFIED OF SAME; ATIVAN ORDERED AND ADMINISTERED. SAFETY PRECAUTIONS IN PLACE WITH CALL LIGHT IN REACH.
[2022-06-17 04:32] VITALS: BP 114/69
--- NOTE | 2022-06-17 05:00 | NUR ---
PT RESTING ON BED WIT EYES CLOSED. AT BED SIDE. NO DISTRESS OR PAIN NOTED. BLOOD SAMPLE OBTAINED AND SEND TO LAB. IJ INFUSING FLUIDS PER ORDER. SAFETY PRECAUTIONS IN PLACE WITH CALL LIGHT IN REACH.
[2022-06-17 05:21] LABS: HEMATOCRIT 28.2 % (39.0-50.0); HEMOGLOBIN 8.7 g/dl (14.0-18.0); MEAN CORPUSCULAR HGB 30.9 pG CALC (26.0-32.0); MEAN CORPUSCULAR HGB CONC 30.9 g/dL CAL (32.0-36.0); RED BLOOD COUNT 2.82 mill/uL (4.70-6.10); RED CELL DISTRI WIDTH 24.4 % (11.5-15.5)
[2022-06-17 05:34] LABS: ALBUMIN 2.8 g/dL (3.2-5.0); CREATININE 3.8 mg/dL (0.7-1.3); MAGNESIUM 2.1 mg/dL (1.6-2.3)
[2022-06-17 06:32] VITALS: BP 114/69
--- NOTE | 2022-06-17 08:00 | NUR ---
PT LAYING IN BED RESTING WITH EYES CLOSED, UNRESPONSIVE TO VOICE. AT BEDSIDE. PT HAS IV LEFT IJ, TRIPLE LUMEN WITH 1/2 NS @ 30ML/HR. PT HAS O2@2 LITERS VIA NC ON. ELKINS PATENT DRAINING BACILIO, YELLOW URINE. PO MEDS NOT GIVEN TODAY, PT IS NOT ABLE TO SWALLOW AT THIS TIME, PROVIDER IS AWARE AND ORDER FOR SWALLOW STUDY HAS BEEN ENTERED. SAFETY MEASURES IN PLACE AT THIS TIME.
--- NOTE | 2022-06-17 09:23 | NUR ---
pt on 2L nc sat 92%
--- NOTE | 2022-06-17 11:35 | NUR ---
ORDER FOR FLUID CHANGE, NEW BAG HUNG OF SODIUM BICARBONATE WITH DEXTROSE 5% 20ML/HR. PT ALSO HAVING LABORED BREATHING, MORPHINE 2 MG GIVEN ORDERED. WILL CONTINUE TO REASSESS PATIENT.
--- NOTE | 2022-06-17 12:00 | NUR ---
PT LAYING IN BE, AT BEDSIDE. RESTING WITH EYES CLOSED, NO CHANGE IN MENTAL STATUS. PT HAS IV SITE LIJ WITH FLUIDS OF SODIUM BICARBONATE W/ DEXTROSE 5% @20 ML/HR. PT HAS O2@2 LITERS ON, ELKINS PATENT AND DRAINING. SAFETY MEASURES IN PLACE.
--- NOTE | 2022-06-17 16:00 | NUR ---
PT IN BED RESTING WITH FAMILY AT BEDSIDE, EYES CLOSED, NO CHANGE IN MENTAL STATUS. IV SITE LIJ INTACT ANF FLUSHES WELL. ELKINS INTACT AND CONT TO DRAIN CLEAR, YELLOW URINE. TELE IS ON ALL LEADS ATTACHED. ALL SAFETY MEASURES IN PLACE.
--- NOTE | 2022-06-17 18:19 | NUR ---
HOSPICE NURSE INFORMED ME THAT FAMILY AGREED FOR PATIENT TO GO TO HOSPICE HOUSE AND HE HAS BEEN ACCEPTED, POSSIBLE DISCHARGE LATER TONIGHT. CALLED COVERING DOCTOR TO INFORM HIM. DR NUÑEZ GAVE VERBAL ORDER TO DISCHARGE PATIENT TO HOSPICE HOUSE WHEN EVERYTHING IS SET UP. READ BACK ORDER TO CONFIRM. ORDER WROTE IN PATIENT'S CHART. HOSPICE NURSE MADE AWARE. HOUSE SUPERVISIOR MADE AWARE.
[2022-06-17 19:04] VITALS: BP 82/53
--- NOTE | 2022-06-17 19:20 | NUR ---
[facility]IENT JUST AWAITING COVID RESULT, TO SCHEDULE THE TRANSPORT, WILL GIVE PRN MORPHINE FOR RESTLESSNESS,
[2022-06-17 20:42] VITALS: BP 82/53
--- NOTE | 2022-06-17 21:00 | NUR ---
CALLED MD PATIENT WAS HAVING LABORED BREATHING INCREASED ON TO 4LPM, ORDER GIVEN ATIVAN FAX TO PHARMACY.
--- NOTE | 2022-06-17 21:02 | NUR ---
PATIENT HAVING LABORED BREATHING INCREASED O2 YO 4LPM, CALLED [facility] RECEIVED ORDER ATIVAN 0.5MG ONDE DOSE.
--- NOTE | 2022-06-17 21:40 | NUR ---
POSITIVE TRANSPORT ARRIVED, PAPER WORKS GIVEN AND, IV ABD CATHETER NOT REMOVED PER HOSPICE, PATIENT TAKEN BY TRANSPORT AT 2140 BY STRETCHER.
== END 2022-06-17 21:45 | disposition hospice, inpatient (51) | DRG 871 ==
LOC: ED 11:08 → ED-I 14:20 → ED 14:50 → MS2 14:51
PROVIDERS: Family Medicine; Internal Medicine Nephrology; Nurse Practitioner Family; ADMIT Internal Medicine; ATTEND Internal Medicine
PROC: 02HV33Z Insertion of Infusion Device into Superior Vena Cava, Percutaneous Approach (ICD-10-PCS; principal; 2022-06-11)
PROC: 30243N1 Transfusion of Nonautologous Red Blood Cells into Central Vein, Percutaneous Approach (ICD-10-PCS; 2022-06-13)
PROC: 30243N1 Transfusion of Nonautologous Red Blood Cells into Central Vein, Percutaneous Approach (ICD-10-PCS; 2022-06-15)
DX: A41.9 Sepsis, unspecified organism (principal); E43 Unspecified severe protein-calorie malnutrition; J18.9 Pneumonia, unspecified organism; K25.4 Chronic or unspecified gastric ulcer with hemorrhage; N17.0 Acute kidney failure with tubular necrosis; C79.51 Secondary malignant neoplasm of bone; C34.91 Malignant neoplasm of unspecified part of right bronchus or lung; D62 Acute posthemorrhagic anemia; E87.1 Hypo-osmolality and hyponatremia; E87.20 Acidosis, unspecified; I47.20 Ventricular tachycardia, unspecified; T36.8X5A Adverse effect of other systemic antibiotics, initial encounter; I95.9 Hypotension, unspecified; E83.51 Hypocalcemia; I10 Essential (primary) hypertension; R33.9 Retention of urine, unspecified; E86.9 Volume depletion, unspecified; Z51.5 Encounter for palliative care; Z66 Do not resuscitate; E78.00 Pure hypercholesterolemia, unspecified; R62.7 Adult failure to thrive; K21.9 Gastro-esophageal reflux disease without esophagitis; Z95.828 Presence of other vascular implants and grafts; Z74.01 Bed confinement status; Z87.311 Personal history of (healed) other pathological fracture; Z96.0 Presence of urogenital implants; Z20.822 Contact with and (suspected) exposure to COVID-19
CPT/HCPCS: G0328; G0378; J0692; J1650; J2060; J3370; P9016; P9047; Q9967; S0164